=== PATIENT | female | born 1995 | race Caucasian/White ===

== ENCOUNTER 2024-11-19 00:41 | Emergency (ER) | payer MEDICAID ==
[~2024-11-19] VITALS: Ht 165.1 cm; Wt 59.0 kg
[2024-11-19 01:18] VITALS: O2SAT 98
[2024-11-19] MEDS ORDERED: FLUC150T46 MT (02:50)
[2024-11-19] MEDS ORDERED: METR70GE27 VG (02:50)
[2024-11-19] MEDS ORDERED: VENL75TA86 MT (02:50)
[2024-11-19 02:53] LABS: CLARITY URINE TURBID (CLEAR); COLOR URINE ORANGE (YELLOW); GLUCOSE URINE NEGATIVE (NEGATIVE); KETONES URINE TRACE (NEGATIVE); LEUKOCYTE ESTERASE URINE 3+ (NEGATIVE); NITRITE URINE NEGATIVE (NEGATIVE); OCCULT BLOOD URINE 3+ (NEGATIVE); PH URINE 5.5 (4.5-8.0); PROTEIN URINE 2+ (NEGATIVE); SPECIFIC GRAVITY URINE 1.027 (1.005-1.030); UROBILINOGEN URINE 0.2 E.U./dL (0.2-1.0)
[2024-11-19 03:55] VITALS: BP 109/70; PULSE 68; RESP 18; TEMP 36.6; O2SAT 97
[2024-11-19 04:51] LABS: SQUAMOUS EPITHELIAL CELL URINE 1+ /lpf (RARE/1+)
[2024-11-19 04:53] LABS: WBC URINE 15-25 /hpf (0-2)
[2024-11-19 04:57] LABS: RBC URINE 25-50 /hpf (0-2)
[2024-11-19 04:58] LABS: BACTERIA URINE 1+
[2024-11-21 13:06] LABS: CHLAMYDIA TRACHOMATIS NAA Negative (Negative); NEISSERIA GONORRHOEAE NAA Negative (Negative)
== END 2024-11-19 03:59 | disposition home or self-care (01) ==
LOC: ER 00:41
DX: N76.0 Acute vaginitis (principal); F32.A Depression, unspecified; Z76.0 Encounter for issue of repeat prescription
CPT/HCPCS: 81003; 81025; 87491; 87591; 99283